=== PATIENT | female | born 1950 | race Caucasian/White ===

== ENCOUNTER 2024-10-11 08:35 | Outpatient (CLI) | payer MEDICARE, OTHER ==
[2024-10-11 09:45] LABS: Hematocrit 43.5 % (34.9-44.5); Hemoglobin 14.0 g/dL (12.0-15.5)
[2024-10-11 09:53] LABS: Anion Gap 13 mmol/L (10-20); BUN (Urea Nitrogen) 17 mg/dL (9.8-20.1); Calc. Creatinine Clearance 0 mL/min (70-130); Calcium 8.6 mg/dL (7.8-10.44); Carbon Dioxide 25 mmol/L (23-31); Chloride 106 mmol/L (98-107); Glucose 98 mg/dL (83-110); Potassium 4.2 mmol/L (3.5-5.1); Sodium 140 mmol/L (136-145)
== END 2024-10-11 08:36 | disposition home or self-care (01) ==
LOC: CSHLAB 08:35
PROVIDERS: ATTEND Otolaryngology Otolaryngic Allergy
DX: Z01.812 Encounter for preprocedural laboratory examination (principal); G47.33 Obstructive sleep apnea (adult) (pediatric)
CPT/HCPCS: 80048; 85014; 85018

== ENCOUNTER 2024-10-18 07:27 | Day surgery (SDC) | payer MEDICARE, OTHER ==
[2024-10-11 09:09] VITALS: BMI 31.3
[2024-10-18] MEDS ORDERED: Ondansetron PF 4 MG/2 ML Vial ONE (09:25)
[2024-10-18] MEDS ORDERED: Rocuronium Bromide 10 MG/ML (10ML VIAL) ONE (09:25)
[2024-10-18] MEDS ORDERED: Lidocaine 1% PF 5 ML VIAL ONE (09:25)
[2024-10-18] MEDS ORDERED: PROPOFOL 20 ML ONE (09:25)
[2024-10-18] MEDS ORDERED: PHENYLEPHRINE-NS 100 MCG/ML 10 ML SYRINGE ONE (10:00)
[2024-10-18] MEDS ORDERED: Glycopyrrolate 0.2 MG/ML 5 ML SYRINGE ONE (10:33)
== END 2024-10-18 13:00 | disposition home or self-care (01) ==
LOC: CSHSDC 07:27
PROVIDERS: ATTEND Otolaryngology Otolaryngic Allergy
PROC: 00HE0MZ Insertion of Neurostimulator Lead into Cranial Nerve, Open Approach (ICD-10-PCS; principal; 2024-10-18)
PROC: 07B10ZZ Excision of Right Neck Lymphatic, Open Approach (ICD-10-PCS; 2024-10-18)
DX: G47.33 Obstructive sleep apnea (adult) (pediatric) (principal); R59.0 Localized enlarged lymph nodes; I10 Essential (primary) hypertension; H90.8 Mixed conductive and sensorineural hearing loss, unspecified; J32.9 Chronic sinusitis, unspecified; J30.1 Allergic rhinitis due to pollen; E66.9 Obesity, unspecified; Z68.30 Body mass index [BMI] 30.0-30.9, adult; Z88.8 Allergy status to other drugs, medicaments and biological substances; Z79.899 Other long term (current) drug therapy
CPT/HCPCS: 64582; 38510; 70360; 71045; C1778 ×2; C1820; J0169; J1100; J2405; J2704; J3010; J3373; 88305; 88341; 88342; C1787